=== PATIENT | male | born 1950 | race Caucasian/White ===

== ENCOUNTER 2023-04-06 11:14 | Outpatient (CLI) | payer MEDICARE ==
[~2023-04-06 11:14] MED LIST: ALLO300T8 PO; BACL10TA2 PO; CARV6.253 PO; GABA300T25; HYDR-3965 PO; LOSA50TA64 PO; ZOLP10TA
[2023-04-06 12:30] LABS: ABG BASE EXCESS 0.8 mmol/L (-2.0-2.0); ABG HCO3 24.4 mmol/L (22.0-26.0); ABG OXYGEN SATURATION 93.5 % (94-97); ABG PCO2 (T) 36.1 mmHg (35.0-48.0); ABG PO2 (T) 67.6 mmHg (75.0-100.0); ALLEN'S TEST POSITIVE; FCOHb 1.1 % (0.0-3.9); FMetHb 0.2 % (0.0-1.5); FO2Hb 92.3 % (94-97); TOTAL HEMOGLOBIN 15.8 G/dl (14.0-17.9)
[2023-04-06 13:33] LABS: BASOPHILS # (AUTO) 0.1 X10'3 (0-0.2); EOSINOPHILS # (AUTO) 0.4 X10'3 (0-0.9); LYMPHOCYTES # (AUTO) 1.8 X10'3 (1.1-4.8); NEUTROPHILS # (AUTO) 3.6 X10'3 (1.8-7.7)
[2023-04-06 13:35] LABS: EOSINOPHILS % (AUTO) 6.6 % (0-6); LYMPHOCYTES % (AUTO) 28.2 % (21-51); MEAN CORPUSCULAR HEMOGLOBIN 30.8 PG (27.0-31.0); MEAN CORPUSCULAR HGB CONC 33.7 g/dL (33.0-36.5); MEAN CORPUSCULAR VOLUME 91.4 FL (78-98); MEAN PLATELET VOLUME 7.3 FL (7.4-10.4); MONOCYTES # (AUTO) 0.6 X10'3 (0-0.9); MONOCYTES % (AUTO) 8.5 % (2-12); NEUTROPHILS % (AUTO) 55.7 % (42-75); PRE OP HEMATOCRIT 45.3 % (42.0-52.0); PRE OP HEMOGLOBIN 15.3 g/dL (14.0-17.9); PRE OP PLATELET COUNT 166 X10'3 (140-440); RED BLOOD COUNT 4.95 X10'6 (4.70-6.10)
[2023-04-06 13:46] LABS: CLARITY,URINE CLEAR (Clear); COLOR,URINE YELLOW (Yellow); GLUCOSE, URINE NEGATIVE (Neg); KETONES,URINE NEGATIVE (Neg); LEUKOCYTE ESTERASE ,URINE NEGATIVE (Neg); NITRITES, URINE NEGATIVE (Neg); OCCULT BLOOD,URINE NEGATIVE (Neg); PROTEIN,URINE NEGATIVE (Neg); UROBILINOGEN,URINE 0.2 E.U/dL (0.2-1.0)
[2023-04-06 13:48] LABS: UA COLLECTION TYPE CLN CATCH MIDSTREAM
[2023-04-06 13:52] LABS: PRE OP PROTIME 10.5 SECONDS (9.0-12.0)
[2023-04-06 13:53] LABS: ALBUMIN 3.9 G/DL (3.4-5.0); ALBUMIN/GLOBULIN RATIO 1.1 (1.1-1.5); ALKALINE PHOSPHATASE 104 IU/L (46-116); BLOOD UREA NITROGEN 24 MG/DL (7-18); BUN/CREATININE RATIO 21.2 (10.0-20.0); CHLORIDE 105 MMOL/L (99-107); CREATININE 1.13 MG/DL (0.60-1.10); PRE OP ALT 30 U/L (30-65); PRE OP ANION GAP 7 (8-16); PRE OP AST 22 U/L (10-37); PRE OP BILIRUB, TOTAL 0.8 MG/DL (0.0-1.0); PRE OP GLUCOSE 101 MG/DL (70-104); PRE OP POTASSIUM 4.1 MMOL/L (3.4-5.1); PRE OP SODIUM 140 MMOL/L (135-145); TOTAL CARBON DIOXIDE 28.1 MMOL/L (24-32); TOTAL PROTEIN 7.5 G/DL (6.4-8.2); eGFR 64 ML/MIN
[2023-04-06 13:56] LABS: HEMOGLOBIN A1C 5.6 % (4.5-6.2)
== END 2023-04-06 23:59 | disposition home or self-care (01) ==
LOC: LAB 11:14 → EDSTATUS 04-08 08:30
PROVIDERS: ATTEND Thoracic Surgery (Cardiothoracic Vascular Surgery)
DX: Z01.818 Encounter for other preprocedural examination (principal); G47.33 Obstructive sleep apnea (adult) (pediatric); I25.10 Atherosclerotic heart disease of native coronary artery without angina pectoris; R00.1 Bradycardia, unspecified; I70.0 Atherosclerosis of aorta; J98.6 Disorders of diaphragm
CPT/HCPCS: 36415; 36600; 71046; 80053; 81003; 82803; 83036; 85018; 85025; 85610; 85730; 86885; 86900; 86901; 86920; 87081; 93005; 94010

== ENCOUNTER 2025-07-18 13:51 | Outpatient (CLI) | payer MEDICARE ==
[~2025-07-18] VITALS: Ht 171.4 cm; Wt 99.8 kg
[~2025-07-18 13:51] MED LIST changes: +ZOLP-679; -ZOLP10TA
[2025-07-18 14:56] LABS: ABG BASE EXCESS -0.6 mmol/L (-2.0-3.0); ABG HCO3 21.8 mmol/L (21.0-28.0); ABG OXYGEN SATURATION 89.5 % (94.0-98.0); ABG PCO2 (T) 30.8 mmHg (35.0-48.0); ABG PH (T) 7.468 (7.350-7.450); ABG PO2 (T) 54.8 mmHg (83.0-108.0); FCOHb 0.7 % (0.5-1.5); FHHb 10.4 % (0.0-5.0); FIO2 21.0 mmHg/%; FMetHb 0.3 % (0.0-1.5); FO2Hb 88.6 % (94.0-98.0); MODE RA; PATIENT TEMPERATURE 37.0; TOTAL HEMOGLOBIN 17.3 G/dl (13.5-17.5)
[2025-07-18 15:05] VITALS: PULSE 53; RESP 18; O2SAT 88
[2025-07-18] MEDS: albuterol 2.5 MG/3 ML nebule NEB ONE (15:25)
[2025-07-18 16:27] VITALS: PULSE 58; RESP 18
--- NOTE | 2025-07-19 16:27 | PROCEDURE NOTE - Respiratory ---
Procedure Note-Respiratory Providers to CC Copies To 1: ALFONZO RENAE MD Procedure Name: This is a complete pulmonary function study dated July 18, 2025. Hemoglobin measurement was done as part of the study. There was also a room air blood gas obtained from this patient on the same date. Spirometry measurements: There is severe reduction in both the forced vital capacity and the FEV1 measurements. The FEV1 ratio is normal. All of the flow rate measurements show significant reduction. After bronchodilator was administered, some of the flow rates show significant improvement. Spirometry documents changes of both obstructive ventilatory defect together with restrictive ventilatory defect. Lung volume measurements: The total lung capacity is significantly reduced. The functional residual capacity is in the lower range of normal. The residual volume measurement is normal. Lung volume measurements confirm a restrictive ventilatory defect. Lung diffusion measurement: The DLCO is substantially reduced. Although the KVO measurement is in the normal range, there is significant reduction in the alveolar volume measurement. It is noted that the hemoglobin measurement is normal. Airway resistance measurement: The airway resistance is normal. Conclusion: This study shows significant abnormality. The predominant abnormality is that of a restrictive ventilatory defect. This is consistent with the patient's history of pneumoconiosis. There is also evidence for mild obstructive ventilatory defect as well. The patient seems to improve with the administration of inhaled bronchodilator. The DLCO measurement is significantly reduced. This patient may show clinical improvement with regular bronchodilator use. We have previous studies for comparison dated March 2023. Over the past two years there has been significant worsening in both the forced vital capacity and the FEV1 measurements. Close pulmonary follow-up is recommended for this patient. A blood gas was drawn from this patient while the patient was breathing ambient air. The blood pH is borderline alkalotic. The pCO2 is slightly reduced. This indicates a mild respiratory alkalosis. There is room air hypoxemia documented with the room air PO2 measuring at 54 mmHg. CÉSAR FORTE MD Jul 19, 2025 16:27
== END 2025-07-18 23:59 | disposition home or self-care (01) ==
LOC: RT 13:51
PROVIDERS: ATTEND Internal Medicine Cardiovascular Disease
DX: J61 Pneumoconiosis due to asbestos and other mineral fibers (principal); E87.3 Alkalosis; R09.02 Hypoxemia; R06.02 Shortness of breath
CPT/HCPCS: 36600; 82803; 85018; 94060; 94727; 94729; 94760

== ENCOUNTER 2025-07-31 09:57 | Day surgery (SDC) | payer MEDICARE ==
[~2025-07-31] VITALS: Ht 170.2 cm; Wt 100.1 kg
[2025-07-31] VITALS (12 sets, daily range): BP systolic 127–159; BP diastolic 61–76; PULSE 55–77; RESP 16; TEMP 98.1; O2SAT 84–96
--- NOTE | 2025-07-31 10:19 | ELECTROCARDIOGRAPH REPORT ---
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 МАРИЯ Marie Measurements Intervals [place] Rate: 74 P: 50 MS: 282 QRS: -87 QRSD: 113 T: -23 QT: 430 QTc: 477 Interpretive Statements Sinus rhythm Prolonged MS interval Left anterior fascicular block Abnormal R-wave progression, late transition Borderline repolarization abnormality Borderline prolonged QT interval Electronically Signed On 07-31-2025 17:45:[address] МАРИЯ Marie Please click the below link to view image of tracing.
--- NOTE | 2025-07-31 11:05 | RADIOLOGY REPORT ---
DI CHEST,TWO VIEWS CLINICAL HISTORY: Pain COMPARISON: None TECHNIQUE: Frontal and lateral view of the chest was obtained FINDINGS: Lines and Tubes: None Lungs: No focal consolidation. Pleura: Trace left pleural effusion. No pneumothorax. Cardiomediastinal contours:Cardiomegaly. Atherosclerotic vascular calcifications of the thoracic aorta are noted. Bones: No acute osseous abnormality. IMPRESSION: Cardiomegaly with trace left pleural effusion.
[2025-07-31 11:14] LABS: MEAN PLATELET VOLUME 7.0 FL (7.4-10.4); RED CELL DISTRIBUTION WIDTH 15.0 % (11.5-14.5)
[2025-07-31 11:23] LABS: CREATININE 0.95 MG/DL (0.60-1.10); TOTAL CARBON DIOXIDE 29.1 MMOL/L (24-32); eCRCL 64 ML/MIN; eGFR 77 ML/MIN
[2025-07-31 11:27] LABS: APTT 29 SECONDS (22-32); INR 1.0 INR
[2025-07-31] MEDS ORDERED: NITR0.4T51 SL (11:32)
[2025-07-31] MEDS ORDERED: COLC0.6C3 PO (11:32)
[2025-07-31] MEDS ORDERED: midazolam 1 mg/ML 2ml injection ONE (12:34)
[2025-07-31] MEDS ORDERED: LIDOcaine 1% 30ml preserv. free vial ONE (12:34)
[2025-07-31] MEDS ORDERED: fentaNYL/PF 50MCG/1 ML 2ML syringe ONE (12:35)
[2025-07-31] MEDS ORDERED: iohexol 350 MG/ML 50ML vial IV ONE ×2 (12:35→13:23)
[2025-07-31] MEDS ORDERED: HYDROcodone/acetaminophen 5mg/325mg tablet PO PRN (14:40)
[2025-07-31] MEDS ORDERED: normal saline 1000ml 1,000 ML IV SCH (14:40)
[2025-07-31] MEDS ORDERED: ondansetron/PF 4mg/2ml inj IV PRN (14:40)
[2025-07-31] MEDS ORDERED: OXAZEpam 15mg capsule PO PRN (14:40)
--- NOTE | 2025-07-31 14:45 | CONSULTATION REPORT ---
History of Present Illness Providers to Ischemic coronary artery disease and known interstitial lung disease now presents with progressive complaints of shortness of breath History of Present Illness 75-year-old remote smoking male (10 pack-years and quit over 40 years ago) with report of asbestosis now presents with several month complaint of progressive shortness of breath. The patient denies chest or back pain. He has known history of progressive lung disease and was told he had asbestosis after an evaluation with Dr. Hodges, biomedical equipment specialist. Recent pulmonary function testing (07/10/2025) demonstrated FEV1 of 1.41 with diffusion capacity of 11.55. I do not have the % predicted at this time. A stress test was performed that was remarkable for lateral and inferior wall ischemia. Cardiac catheterization today reveals normal LAD with ostial ramus of 80%, occluded circumflex with distal collaterals and then RCA with proximal 99% stenosis. The patient tolerated procedure well remaining hemodynamically stable and is pain-free. I have been asked to see the patient regarding coronary artery bypass graft. Allergies: Coded Allergies: Nxgafmr-HTW-KnD Reductase Inhibitor (Unverified Allergy, Unknown, 03/09/23) Home Medications Home Medications Active Reported Nitrostat SL* (Nitroglycerin) 0.4 Mg Tablet 1 Tab SL Q5MIN PRN Colchicine 0.6 Mg Capsule 1 Cap PO PRN 30 Days Gralise (Gabapentin) 300 Mg Tab.er.24h Carvedilol 6.25 Mg Tablet 1 Tab PO BID Ambien (Zolpidem Tartrate) 10 Mg Tablet Martha 5/325 MG (Acetaminophen/Hydrocodone Bitart) 5 Mg/325 Mg Tablet 1 Tab PO Q8H PRN Allopurinol 300 Mg Tablet 1 Tab PO PRN Baclofen 10 Mg Tablet 1 Tab PO DAILY Losartan Potassium 50 Mg Tablet 1 Tab PO BID Past Medical History Medical History Comment As per admission note Past Surgical History Surgical History Comment As per the admission note Past Family History Family History Comment Noncontributory Past Social History Social History Comment As per HPI Physical Exam Last Vital Signs Recorded: Respiratory Rate: 16 General Appearance: alert, no apparent distress, obese Neck: normal inspection, full range of motion, non-tender Respiratory: normal breath sounds, no respiratory distress Chest: no accessory muscle use, chest non-tender Cardiovascular: regular rate, rhythm, no edema, no JVD, no murmur Gastrointestinal: normal palpation, non-tender Neurologic: oriented x4 Psychiatric: normal mood/affect Skin: warm/dry Review of Systems ROS ROS Comments: As per HPI Results Diagram Lab Result Diagram: 07/31/25 1100 07/31/25 1100 Assessment/Plan Additional Plan 75-year-old male with remote smoking history and recently diagnosed asbestosis presents with a progressive complained of fatigue and shortness of breaths with a past 2-3 months. Pulmonary function testing demonstrate severe hypoxemia moderate to severe pulmonary function testing. Cardiac catheterization has been performed demonstrating normal LAD with ostial ramus of 80-90%, occluded circumflex with collaterals and 99% stenosis of the proximal RCA. The patient has preserved ventricular function and I have been asked to see him regarding surgical intervention. I have explained the above findings to the patient and his and recommendations for coronary bypass grafting. We will 1st undergo routine testing including CAT scan of the chest, carotid ultrasound, vein mapping, arterial blood gas, radial and ulnar ultrasound with the evaluation the palmar arch, and pulmonary consultation. The patient noted that he has a pulmonary consultation already established for next week with another biomedical equipment specialist. At this time he does not remember their name. We will obtain these studies as an outpatient with plan for surgical intervention after evaluation and recommendations of the biomedical equipment specialist. MARGA AREVALO MD Jul 31, 2025 14:45
[2025-07-31] MEDS: HYDROcodone/acetaminophen 10/325mg tab PO PRN (17:05)
--- NOTE | 2025-08-06 05:56 | CARDIOLOGY REPORT ---
DATE OF SERVICE: 07/31/2025 DICTATING PHYSICIAN: Adonis Hancock MD PROCEDURES: * Left heart catheterization. * Left ventriculography. * Selective left and right coronary arteriography. * Selective left and right internal mammary angiography. * Conscious sedation in duration 30 minutes. * Right femoral arteriogram Angio-Seal application. BRIEF HISTORY AND INDICATION: A 75-year-old male had left anterior descending stent at [facility] on 08/22/2023. Right coronary was not treated at that time. He has been having increasing shortness of breath and anginal equivalent symptoms. He does have pneumoconiosis with an FEV1 of 1.4 and FVC of 1.9, DLCO of 11.5. He had a nuclear stress test with anterior and inferior reversible ischemia. Risks, benefits, and alternatives of diagnostic heart catheterization were discussed with him. I told him that he may or may not qualify for coronary bypass grafting and then the best we can do is intervention. More than likely his coronary artery disease has progressed. Risks included, but not restricted to stroke, myocardial infarction, renal failure, neurologic, rash complications, bleeding complications, allergic reaction. TECHNIQUE: Following the usual sterile preparation, draping the right groin was infiltrated with 10 mL of 1% lidocaine and local anesthetic. Conscious sedation was achieved with 2 mg Versed and 75 mcg of fentanyl. The patient was maintained on oxygen 2 liters per minute, normal saline 100 mL per hour. Nitroglycerin sublingual was administered in the microbiology lab analyst for blood pressure control. Following single wall puncture technique, ____ the 6-Chilean sheath was introduced into the right femoral artery. Selective left and right coronary arteriography in multiple oblique projections. Internal mammary angiography was performed with 6-Chilean femoral, left ____ Lotus-shaped catheters. Left ventriculography in right anterior oblique projection with a straight pigtail catheter. Catheter exchanges were under fluoroscopic guidance with a J-tip guidewire leak. 110 mL of Omnipaque 350 contrast was administered. Radiation exposure was 9,935 cGy per cm2. Fluoroscopy was 3.9 minutes. FINDINGS: AO 142/64, LV 142/10/20. Left ventriculogram ejection fraction 66%, post premature ventricular complex, right internal femoral arteries are smooth. Left main coronary provides the left anterior descending and intermediate with a large side branch and left circumflex. There is calcification in vessels. Proximal left anterior descending stent is smooth. Anterior descending wraps around the apex of the myocardium. It provides collateralization to the left circumflex, obtuse marginal and to the distal right coronary. There is an 85% ostial intermediate branch narrowing. There is an 85% narrowing of a 1.5 mm side branch of the intermediate. Left circumflex has 99% obstruction with MORENITA 1 flow beyond two stents. There are two posterolateral branches. Right coronary has a 99% proximal obstruction with MORENITA 1 flow. This may be recanalized. Posterior descending and posterolateral reached the apex of the myocardium. Right and left internal mammary arteries are smooth. RESULTS: * Normal left ventricular ejection fraction of 66% post premature ventricular complex. * Left anterior descending stent smooth. * Left anterior descending provides collateral to the distal left circumflex and to the right coronary artery. * 85% ostial intermediate branch with 85% enlarged side branch of the intermediate. * 99% left circumflex with MORENITA 1 flow. Two posterolateral branches noted. * 99% proximal right coronary artery with MORENITA 1 flow. COMMENT: The patient does have pneumoconiosis; however, his FEV1, FVC, and DLCO may be adequate for thoracotomy with surgical revascularization. Risks, benefits, and alternatives of that or attempting repeat stenting procedure out of town were discussed with him and his . They would like to have a surgical consultation and are willing to undergo coronary bypass grafting. Adonis Hancock MD TID: [id number] RECEIPT: [id number] TR/ANGELITO cc: Dr. Smith, [facility]
== END 2025-07-31 20:45 | disposition home or self-care (01) ==
LOC: SSTAY O 09:57
PROVIDERS: ATTEND Internal Medicine Cardiovascular Disease
DX: I25.10 Atherosclerotic heart disease of native coronary artery without angina pectoris (principal); J61 Pneumoconiosis due to asbestos and other mineral fibers; I70.0 Atherosclerosis of aorta; I51.7 Cardiomegaly; I44.4 Left anterior fascicular block; R94.31 Abnormal electrocardiogram [ECG] [EKG]; Z87.891 Personal history of nicotine dependence; J84.9 Interstitial pulmonary disease, unspecified; Z79.899 Other long term (current) drug therapy; Z88.8 Allergy status to other drugs, medicaments and biological substances
CPT/HCPCS: 36415; 71046; 80048; 85025; 85610; 85730; 93005; 93459; A4615; A6258; A6402; C1760; J1644; J2003; J2250; J3010; J7030; Q0163; Q9967; 93460; 99152; 99153; A6449